=== PATIENT | female | born 1965 | race Caucasian/White ===

== ENCOUNTER 2017-11-17 05:00 | Day surgery (SDC) | payer OTHER ==
[2017-11-16 16:47] VITALS: BMI 26.5
[2017-11-17] MEDS ORDERED: MIDAZOLAM HCL 2 MG/2 ML SINGLE DOSE VIAL ONE (09:10)
[2017-11-17] MEDS ORDERED: MICROFIBRILLAR COLLAGEN 1 GM EACH ONE (09:12)
[2017-11-17] MEDS ORDERED: PROPOFOL 20 ML ONE (09:25)
[2017-11-17] MEDS ORDERED: fentaNYL CITRATE 250 MCG/5 ML VIAL ONE (09:26)
[2017-11-17] MEDS ORDERED: SUCCINYLCHOLINE CHLORIDE 200 MG/10 ML VIAL ONE (09:26)
[2017-11-17] MEDS ORDERED: BUPIVACAINE HCL/PF 0.5% (5MG/ML) 10 ML VIAL ONE (09:33)
[2017-11-17] MEDS ORDERED: ceFAZolin SODIUM 1 GM VIAL IVPB ONE (09:39)
[2017-11-17] MEDS ORDERED: KETOROLAC TROMETHAMINE 30 MG/1 ML VIAL ONE (10:01)
[2017-11-17] MEDS ORDERED: DEXAMETHASONE SOD PHOSPHATE 4 MG/1 ML VIAL ONE (10:01)
[2017-11-17] MEDS ORDERED: MICROFIBRILLAR COLLAGEN 1 GM EACH TP ONE (10:35)
[2017-11-17] MEDS ORDERED: PROMETHAZINE HCL 25 MG/1 ML VIAL IVPUSH PRN (11:10)
[2017-11-17] MEDS ORDERED: ONDANSETRON 4 MG/2 ML VIAL IVPUSH PRN (11:10)
[2017-11-17] MEDS ORDERED: oxyCODONE HCL 5 MG TABLET PO PRN (11:10)
[2017-11-17] MEDS ORDERED: LACTATED RINGERS SOLUTION 1,000 ML IV SCH (11:15)
[2017-11-17 13:07] VITALS: PULSE 86; TEMP 98.6
[2017-11-17] MEDS ORDERED: oxyCODONE HCL 5 MG TABLET ONE (13:23)
[2017-11-17] MEDS ORDERED: oxyCODONE HCL 5 MG TABLET PO ONE (13:25)
--- NOTE | 2017-11-17 14:29 | OP ---
Operative Note - Note: Operative Date: 11/17/17 Pre-Operative Diagnosis: left thyroid nodule Operation: left hemithyroidectomy Post-Operative Diagnosis: Same as Pre-op Surgeon: Tyler Guillen [employer] Deck Hand: Tammie Sethi Anesthesiologist/LABORATORY SUPERVISOR: Lopez Flores Anesthesia: General Specimens Removed: left thyroid lobe Estimated Blood Loss (mls): 20 Fluid Volume Replaced (mls): 800 Operative Report Dictated: Yes
--- NOTE | 2017-11-17 14:30 | SURG ---
Surgery Certified Professional Ergonomist Note Certified Professional Ergonomist: Tammie Sethi PA-C Date of Service: 11/17/17 Diagnosis: thyroid nodule Procedure: left hemithyroidectomy I was present for the entirety of the operative procedure. For further detail, please refer to operative report. Visit type - Case Type Case Type: Scheduled - Emergency Emergency Visit: No - New patient This patient is new to me today: Yes Date on this admission: 11/17/17
[2017-11-17 15:54] VITALS: BP 107/66
--- NOTE | 2017-11-17 22:39 | OP ---
DATE OF OPERATION: 11/17/2017 SURGICAL ATTENDING: Edwar Karimi MD SUPERINTENDENT DISTRIBUTION: MESFIN Miranda ANESTHESIOLOGIST: Lopez Flores MD PREOPERATIVE DIAGNOSIS: Left thyroid nodule. POSTOPERATIVE DIAGNOSIS: Left thyroid nodule. ANESTHESIA: General endotracheal. PROCEDURE: Left hemithryoidectomy and neck ultrasound. DESCRIPTION OF PROCEDURE: The patient was taken to the operating room, placed in a supine position, endotracheally intubated. Eyes were protected. A shoulder roll was placed. Neck ultrasound was performed showing a left thyroid nodule with no extracapsular extension and no adenopathy. The neck was then prepped and draped in usual sterile fashion. Local anesthesia was injected, and a 4-cm horizontal incision was made in anterior mid-neck skin crease. This was carried down through subcutaneous tissues and platysma. Subplatysmal flaps were raised superiorly and inferiorly, and flap hooks were placed for exposure. The median raphe was incised, and the left-sided strap muscles were elevated off the thyroid gland. The recurrent laryngeal nerve and superior laryngeal nerves were identified and preserved. The parathyroid glands were also identified and preserved. The superior, posterior, and inferior attachments of the thyroid gland were transected. The thyroid gland was lifted off of the trachea. The isthmus was transected, and in this way, the left thyroid lobe was removed and sent to Pathology. Hemostasis was achieved with electrocautery and Avitene. Note that the nerve monitor was used throughout the operation. The wound was then closed in 3 layers. Sterile dressings were placed. Patient was then extubated, awake, and then taken to Recovery in stable condition. Dr. Karimi, the attending surgeon, was present throughout the entire procedure. EDWAR KARIMI M.D. JOSÉ [id number]
--- NOTE | 2017-11-22 10:51 | PATH ---
Surgical Pathology Report Patient Name: DAVID WORTHY [facility]. Rec. #: [id number] /Age/Gender: 1965 (Age: 52) / F Account: [id number] Location: [facility] SURGICAL Taken: 11/17/2017 Received: 11/17/2017 Reported: 11/22/2017 Physicians: Tyler Guillen M.D. Specimen(s) Received LEFT THYROID, TOTAL LOBE Clinical History Thyroid nodule Final Diagnosis LEFT THYROID NODULE, LEFT HEMITHYROIDECTOMY: THYROID TISSUE WITH NONINVASIVE FOLLICULAR THYROID NEOPLASM WITH PAPILLARY-LIKE NUCLEAR FEATURES (NIFTP), 3.1CM IN GREATEST DIMENSION. THE MARGIN IS FREE FROM NIFTP. TWO SMALL REACTIVE LYMPH NODES. Electronically Signed Kane Wong M.D. Gross Description Received in formalin labeled "left thyroid lobe," is a 13 g, 4.3 x 2.3 x 2.3 cm left thyroid lobe with an attached 1.8 x 2.5 x 0.7 cm isthmus. The outer capsule is red-brown and intact. Sectioning reveals a 3.1 cm in greatest dimension hemorrhagic nodule in the left lobe. The nodule abuts the outer capsule but does not appear to invade through it. The minimal remaining thyroid parenchyma is red-brown and beefy. The specimen is entirely submitted in 10 cassettes as follows: [id number] and sequentially submitted left lobe from superior to inferior; [id number] submitted isthmus from left to right. DL/11/17/2017 saudi/11/17/2017
== END 2017-11-17 15:56 | disposition home or self-care (01) ==
LOC: JASU-SURG 05:00
PROVIDERS: ATTEND Surgery
PROC: 0GTG0ZZ Resection of Left Thyroid Gland Lobe, Open Approach (ICD-10-PCS; principal; 2017-11-17 09:00)
DX: E04.1 Nontoxic single thyroid nodule (principal)
CPT/HCPCS: 84703; 88307-TC; 94760

== ENCOUNTER 2019-04-14 10:58 | Emergency (ER) | payer OTHER ==
[2019-04-14 11:02] VITALS: BP 127/77; PULSE 74; TEMP 97.7; BMI 27.3
[2019-04-14] MEDS ORDERED: METHOCARBAMOL 750 MG TABLET PO ONE (11:11)
[2019-04-14] MEDS ORDERED: KETOROLAC TROMETHAMINE 60 MG/2 ML VIAL IM ONE (11:11)
[2019-04-14] MEDS ORDERED: KETOROLAC TROMETHAMINE 60 MG/2 ML VIAL ONE (11:12)
[2019-04-14] MEDS ORDERED: METHOCARBAMOL 500 MG TABLET ONE (11:13)
--- NOTE | 2019-04-14 11:15 | PDOC ---
History of Present Illness - General Chief Complaint: Back Pain Stated Complaint: BACK PAIN Time Seen by Provider: 04/14/19 11:03 History Source: Patient Exam Limitations: No Limitations Past History - Past Medical History Allergies/Adverse Reactions: Allergies Allergy/AdvReac Type Severity Reaction Status Date / Time No Known Allergies Allergy Verified 04/14/19 11:02 Home Medications: Ambulatory Orders Atorvastatin Ca [Lipitor] 10 mg PO HS 11/16/17 oxyCODONE HCL [Roxicodone -] 5 mg PO Q4H PRN #20 tablet MDD 6 11/17/17 Methocarbamol [Robaxin-750] 1,500 mg PO Q6H #24 tablet 04/14/19 Anemia: No Asthma: No Cancer: No Cardiac Disorders: No CVA: No COPD: No CHF: No Dementia: No Diabetes: No GI Disorders: No Disorders: No HTN: No Hypercholesterolemia: Yes Liver Disease: No Seizures: No Thyroid Disease: No - Surgical History Abdominal Surgery: No Appendectomy: No Cardiac Surgery: No Cholecystectomy: No Lung Surgery: No Neurologic Surgery: No Orthopedic Surgery: No - Reproductive History Tubal Ligation: Yes - Psycho Social/Smoking Cessation Hx Smoking History: Never smoked Hx Alcohol Use: No Drug/Substance Use Hx: No Substance Use Type: None Hx Substance Use Treatment: No *Physical Exam - Vital Signs Last Vital Signs Temp Pulse Resp BP Pulse Ox 97.7 F 74 18 127/77 99 04/14/19 10:59 04/14/19 10:59 04/14/19 10:59 04/14/19 10:59 04/14/19 10:59 - Physical Exam General Appearance: No: Apparent Distress Respiratory/Chest: positive: Lungs Clear, Normal Breath Sounds. negative: Respiratory Distress Cardiovascular: positive: Regular Rhythm, Regular Rate, S1, S2. negative: Murmur Gastrointestinal/Abdominal: positive: Normal Bowel Sounds, Soft. negative: Tender, Distended, Guarding, Rebound Musculoskeletal: positive: Muscle Spasm (along R lumbar paraspinal muscles). negative: CVA Tenderness, Vertebral Tenderness Neurologic: positive: Alert, Normal Mood/Affect, Motor Strength 5/5, Other ( able to ambulate) Medical Decision Making - Medical Decision Making 53 y/o F hx of HLD, L hemithyroidectomy presents with R lower back pain x 2 days. Took 1 tablet of Motrin this AM without much relief of pain. Mentions having back issues before and last year, was told she had 2 herniated discs. Denies trauma or heavy lifting. Works as house builder. Denies fever, sob, cp, abd pain, n/v/d, urinary symptoms, bowel/bladder incontinence, saddle/groin paresthesia. LBP with muscle spasms Plan: Toradol, Robaxin, reassess 04/14/19 11:12 Discharge - Discharge Information Problems reviewed: Yes Clinical Impression/Diagnosis: Spasm of muscle of lower back Condition: Stable Disposition: HOME - Admission No - Additional Discharge Information Prescriptions: Methocarbamol [Robaxin-750] 1,500 mg PO Q6H #24 tablet Prescription Drug Monitoring Program (I-STOP) results: I-STOP not reviewed - Follow up/Referral - Patient Discharge Instructions Patient Printed Discharge Instructions: DI for Low Back Pain Additional Instructions: Thank you for choosing [facility]. It was a pleasure taking care of you. You may take Motrin 600 mg every 6 hours by mouth as needed for mild to moderate pain. Take Motrin with food. Take Robaxin as needed for muscle spasms. This medication can make you drowsy so be cautious if driving Warm compresses and Epsom salt baths may also help. Follow-up with your doctor in 2 days Return to the Emergency Department if your symptoms worsen or persist, you have fever, shortness of breath, chest pain, severe abdominal pain, vomiting, weakness of extremities, unable to walk, unable to control bowel movements or other concerning symptoms. - Post Discharge Activity
== END 2019-04-14 11:51 | disposition home or self-care (01) ==
LOC: JERFT 10:58
PROC: 3E0233Z Introduction of Anti-inflammatory into Muscle, Percutaneous Approach (ICD-10-PCS; principal; 2019-04-14)
DX: M62.830 Muscle spasm of back (principal); E78.00 Pure hypercholesterolemia, unspecified; Z98.51 Tubal ligation status
CPT/HCPCS: 96372; 99281-25